=== PATIENT | male | born 1990 | race American Indian/Alaskan Native ===

== ENCOUNTER 2020-03-14 23:48 | Emergency (ER) | payer OTHER ==
[2020-03-15 01:27] LABS: Basophils % (Auto) 0.3 % (0.0-1.8); Eosinophils # (Auto) 0.3 K/mm3 (0.0-0.4); Eosinophils % (Auto) 2.6 % (0.0-4.3); Hematocrit 45.7 % (35.5-45.6); Hemoglobin 14.9 gm/dl (11.8-15.2); Lymphocytes # (Auto) 2.2 K/mm3 (1.2-5.4); Lymphocytes % (Auto) 18.9 % (13.4-35.0); Mean Corpuscular HGB Conc 33 % (32-34); Mean Corpuscular Volume 86 fl (84-94); Monocytes # (Auto) 0.8 K/mm3 (0.0-0.8); Platelet Count 172 K/mm3 (140-440); Red Blood Count 5.29 M/mm3 (3.65-5.03)
[2020-03-15 01:48] LABS: Blood Urea Nitrogen 17 mg/dL (9-20); Calcium 9.8 mg/dL (8.4-10.2); Hemolysis Index 18
[2020-03-15 01:58] LABS: BUN/Creatinine Ratio 24
[2020-03-15 02:11] LABS: Amphetamine Screen,Urine PRESUMPTIVE NEGATIVE; Benzodiazepines Screen,Urine PRESUMPTIVE NEGATIVE; Cannabinoid Screen,Urine PRESUMPTIVE POSITIVE; Cocaine Screen,Urine PRESUMPTIVE NEGATIVE; Methadone Screen,Urine PRESUMPTIVE NEGATIVE; Opiate Screen,Urine PRESUMPTIVE NEGATIVE
[2020-03-15 02:14] LABS: Bilirubin,Urine NEG (Negative); Blood,Urine NEG (Negative); Color,Urine Yellow (Yellow); Mucus,Urine FEW /HPF; Protein,Urine <15 mg/dL mg/dL (Negative); WBC,Urine < 1.0 /HPF (0.0-6.0)
== END 2020-03-15 00:31 | disposition left against medical advice (07) ==
LOC: ED 23:48
DX: F20.9 Schizophrenia, unspecified (principal); Z53.21 Procedure and treatment not carried out due to patient leaving prior to being seen by health care provider
CPT/HCPCS: 36415; 80048; 80307; 80320; 81001; 85025; G0480

== ENCOUNTER 2020-03-16 23:16 | Emergency (ER) | payer OTHER, MEDICARE | END 2020-03-16 23:25 | disposition left against medical advice (07) | LOC: ED 23:16 | DX: F20.9 Schizophrenia, unspecified (principal); Z53.21 Procedure and treatment not carried out due to patient leaving prior to being seen by health care provider ==

== ENCOUNTER 2020-07-29 23:48 | Emergency (ER) | payer OTHER, MEDICARE ==
[2020-07-30 04:30] VITALS: BP 129/80
== END 2020-07-30 05:17 | disposition left against medical advice (07) ==
LOC: ED 23:48
DX: J45.909 Unspecified asthma, uncomplicated (principal); Z53.21 Procedure and treatment not carried out due to patient leaving prior to being seen by health care provider

== ENCOUNTER 2021-01-03 16:09 | Inpatient (IN) | payer MEDICARE, OTHER ==
--- NOTE | 2021-01-03 17:31 | Emergency Department Report ---
ED Shortness of Breath HPI - General Chief Complaint: Upper Respiratory Infection Stated Complaint: FEVER Time Seen by Provider: 01/03/21 17:18 Source: patient Mode of arrival: Stretcher Limitations: No Limitations - History of Present Illness Initial Comments: 30-year-old male, history of schizophrenia, asthma, presents to ED with shortness of breath. Patient is currently an inpatient at [facility]. He reports cough, fever, shortness of breath x5 days. Patient states he has NOT received the COVID-19 vaccine. MD Complaint: shortness of breath -: days(s) (5) Severity: moderate Consistency: constant Improves With: rest Worsens With: exertion Known History Of: asthma Associated Symptoms: fever, cough Treatments Prior to Arrival: none - Related Data Home Oxygen Therapy: No Previous Rx's Medication Instructions Recorded Last Taken Type Albuterol Sulfate [Proventil Hfa] 2 puff IH Q4HR PRN #1 hfa.aer.ad 01/03/21 Unknown Rx predniSONE [Deltasone] 50 mg PO QDAY #5 tab 01/03/21 Unknown Rx Allergies Allergy/AdvReac Type Severity Reaction Status Date / Time No Known Allergies Allergy Verified 01/03/21 23:42 ED Review of Systems ROS: Stated complaint: FEVER/LOW O2 SAT Other details as noted in HPI Comment: All other systems reviewed and negative Constitutional: fever Respiratory: cough, shortness of breath, wheezing ED Past Medical Hx - Past Medical History Previous Medical History?: Yes Hx Psychiatric Treatment: Yes (schizo) Hx Asthma: Yes - Social History Smoking Status: Current Every Day Smoker Substance Use Type: None - Medications Home Medications: Home Medications Medication Instructions Recorded Confirmed Last Taken Type Albuterol Sulfate [Proventil Hfa] 2 puff IH Q4HR PRN #1 hfa.aer.ad 01/03/21 Unknown Rx predniSONE [Deltasone] 50 mg PO QDAY #5 tab 01/03/21 Unknown Rx ED Physical Exam - General Limitations: No Limitations General appearance: alert - Head Head exam: Present: atraumatic, normocephalic - Eye Eye exam: Present: normal appearance, EOMI - ENT ENT exam: Present: mucous membranes moist - Neck Neck exam: Present: normal inspection - Respiratory Respiratory exam: Present: respiratory distress, wheezes, other (Tachypneic) - Cardiovascular Cardiovascular Exam: Present: regular rate, normal rhythm - GI/Abdominal GI/Abdominal exam: Present: soft. Absent: distended, tenderness - Extremities Exam Extremities exam: Present: normal inspection - Neurological Exam Neurological exam: Present: alert, oriented X3 - Psychiatric Psychiatric exam: Present: normal affect, normal mood - Skin Skin exam: Present: warm, dry, intact, normal color ED Course Vital Signs 01/03/21 01/03/21 01/03/21 17:02 17:16 17:30 Temperature 98.3 F Pulse Rate 93 H 86 Pulse Rate [ Bilateral Throughout] Respiratory 33 H 38 H Rate Respiratory Rate [Bilateral Throughout] Blood Pressure 124/85 Blood Pressure [Left] O2 Sat by Pulse 94 100 Oximetry 01/03/21 01/03/21 01/03/21 17:55 18:00 18:30 Temperature Pulse Rate 95 H 93 H Pulse Rate [ Bilateral Throughout] Respiratory 16 43 H 37 H Rate Respiratory Rate [Bilateral Throughout] Blood Pressure 120/85 100/51 Blood Pressure [Left] O2 Sat by Pulse 98 95 94 Oximetry 01/03/21 01/03/21 01/03/21 19:00 19:15 19:16 Temperature 99.6 F Pulse Rate 100 H 102 H Pulse Rate [ 98 H Bilateral Throughout] Respiratory 34 H 18 Rate Respiratory 20 Rate [Bilateral Throughout] Blood Pressure 133/86 Blood Pressure 121/80 [Left] O2 Sat by Pulse 96 95 Oximetry 01/03/21 01/03/21 01/03/21 19:30 20:00 20:30 Temperature Pulse Rate 114 H 141 H 136 H Pulse Rate [ Bilateral Throughout] Respiratory 22 36 H 32 H Rate Respiratory Rate [Bilateral Throughout] Blood Pressure 121/80 113/60 113/60 Blood Pressure [Left] O2 Sat by Pulse 94 91 95 Oximetry 01/03/21 01/03/21 01/03/21 21:00 21:30 22:19 Temperature Pulse Rate 125 H 116 H Pulse Rate [ Bilateral Throughout] Respiratory 34 H 34 H Rate Respiratory Rate [Bilateral Throughout] Blood Pressure 112/50 102/40 Blood Pressure [Left] O2 Sat by Pulse 91 92 93 Oximetry 01/03/21 01/03/21 01/03/21 22:29 22:30 23:00 Temperature Pulse Rate Pulse Rate [ Bilateral Throughout] Respiratory 28 H Rate Respiratory Rate [Bilateral Throughout] Blood Pressure 103/37 112/45 Blood Pressure [Left] O2 Sat by Pulse 89 95 98 Oximetry 01/03/21 01/04/21 23:30 00:00 Temperature Pulse Rate Pulse Rate [ Bilateral Throughout] Respiratory Rate Respiratory Rate [Bilateral Throughout] Blood Pressure 112/45 Blood Pressure [Left] O2 Sat by Pulse 95 94 Oximetry - Reevaluation(s) Reevaluation #1: 01/03/21 20:08 Wheezing improved following neb treatment. Patient remains tachypneic. Will obtain CTA chest. ED Medical Decision Making - Lab Data Result diagrams: 01/03/21 20:21 01/03/21 20:21 - Radiology Data Radiology results: report reviewed, image reviewed - Medical Decision Making 30-year-old male presents to ED with 5 days of history of viral symptoms, including fever, cough, shortness of breath. Patient with history of asthma. Upon arrival patient tachypneic, wheezing. Initial chest x-ray negative for pneumonia. Patient was given Solu-Medrol, magnesium, albuterol nebs. Following nebulizer treatment, patient remains tachypneic, although wheezing have res olved. CTA chest was done, which was negative for PE, but does show bilateral pneumonia, suspicious for COVID-19. Throughout ED stay O2 sat dropped to 91%. I had nurse ambulate patient again and O2 sats dropped down to 89% on room air. Patient remains somewhat tachypneic. He has been placed on 2 L O2. Blood cultures drawn, Rocephin and azithromycin given. Patient will be admitted to hospitalist for further evaluation. - Differential Diagnosis COVID-19, pneumonia, asthma exacerbation, flu Critical Care Time: Yes Critical care time in (mins) excluding proc time.: 35 Critical care attestation.: If time is entered above; I have spent that time in minutes in the direct care of this critically ill patient, excluding procedure time. Critical Care Time: 35 min ED Disposition Clinical Impression: Acute asthma exacerbation, Suspected COVID-19 virus infection, Pneumonia, Acute respiratory failure with hypoxia Disposition: ADMITTED INPATIENT Is pt being admited?: Yes Condition: Stable Time of Disposition: 22:28
[2021-01-03] MEDS ORDERED: ALBUTEROL 2.5 MG/3 ML NEBU IH ONE (17:36)
[2021-01-03] MEDS ORDERED: IPRATROPIUM 0.02% NEBU 2.5 ML IH ONE (17:36)
[2021-01-03] MEDS ORDERED: methylPREDNISolone Sod Succinate 125 MG/2 ML INJ IV ONE (17:36)
[2021-01-03] MEDS ORDERED: MAGNESIUM SULFATE 2 GM/50 ML BAG IV ONE (17:36)
--- NOTE | 2021-01-03 17:54 | XRay Report ---
CHEST 1 VIEW 01/03/2021 5:22 PM INDICATION / CLINICAL INFORMATION: cough, sob. COMPARISON: Chest x-ray 02/03/2020 FINDINGS: SUPPORT DEVICES: None. HEART / MEDIASTINUM: No significant abnormality. LUNGS / PLEURA: No significant pulmonary or pleural abnormality. No pneumothorax. ADDITIONAL FINDINGS: Mild thoracic scoliosis IMPRESSION: 1. No acute findings. Signer Name: Festus Hoover MD Signed: 01/03/2021 5:50 PM Workstation Name: [id number]
[2021-01-03 20:47] LABS: Basophils % (Auto) 0.2 % (0.0-1.8); Eosinophils # (Auto) 0.1 K/mm3 (0.0-0.4); Eosinophils % (Auto) 0.6 % (0.0-4.3); Hematocrit 43.5 % (35.5-45.6); Hemoglobin 14.3 gm/dl (11.8-15.2); Lymphocytes # (Auto) 1.1 K/mm3 (1.2-5.4); Lymphocytes % (Auto) 8.1 % (13.4-35.0); Mean Corpuscular HGB Conc 33 % (32-34); Mean Corpuscular Volume 83 fl (84-94); Monocytes # (Auto) 0.4 K/mm3 (0.0-0.8); Monocytes % (Auto) 3.1 % (0.0-7.3); Platelet Count 106 K/mm3 (140-440); Red Blood Count 5.21 M/mm3 (3.65-5.03); Red Cell Distribution Width 15.4 % (13.2-15.2)
[2021-01-03 21:06] LABS: BUN/Creatinine Ratio 14; Blood Urea Nitrogen 15 mg/dL (9-20); Calcium 8.5 mg/dL (8.4-10.2); Hemolysis Index 5
--- NOTE | 2021-01-03 22:13 | Cat Scan Report ---
CTA CHEST WITH CONTRAST INDICATION / CLINICAL INFORMATION: S.O.B. x 5 days with cough and fever. Hx of Asthma. TECHNIQUE: Axial CT images were obtained through the chest after injection of IV contrast. 3 plane AK P and/or 3D reconstructions were produced. All CT scans at this location are performed using CT dose reduction for ALARA by means of automated exposure control. COMPARISON: None available. FINDINGS: PULMONARY ARTERIES: Evaluation for pulmonary embolus is limited due to extensive respiratory motion a rtifact. There is no central pulmonary embolus. THORACIC AORTA: No significant abnormality. HEART: No significant abnormality. ADENOPATHY: No significant adenopathy. LUNGS/PLEURA: Multifocal patchy groundglass opacities and airspace consolidation are present througho ut the lungs, most pronounced within the right middle lobe and lingula. No pleural effusion. No pneum othorax. ADDITIONAL FINDINGS: None. UPPER ABDOMEN: No acute findings. SKELETAL STRUCTURES: No significant osseous abnormality. IMPRESSION: 1. Multifocal patchy airspace consolidation throughout the lungs, compatible with pneumonia. 2. Evaluation for pulmonary embolus is limited due to respiratory motion artifact. There is no centra l pulmonary embolus. Signer Name: Brent Sidhu MD Signed: 01/03/2021 10:08 PM Workstation Name: [id number]
[2021-01-03] MEDS ORDERED: AZITHROMYCIN 250 MG TAB PO ONE (22:18)
[2021-01-03] MEDS ORDERED: cefTRIAXone/NS 1 GM/50 ML 1 GM/50 ML BAG IV ONE (22:18)
[2021-01-03] MEDS ORDERED: SODIUM CHLORIDE 0.9% 1000 ML 1,000 ML IV ONE (22:31)
[2021-01-03] MEDS ORDERED: MORPHINE 4 MG/1 ML INJ IV PRN (23:28)
[2021-01-03] MEDS ORDERED: ACETAMINOPHEN 325 MG TAB PO PRN (23:28)
[2021-01-03] MEDS ORDERED: MAGNESIUM HYDROXIDE (MOM) ORAL LIQD UDC PO PRN (23:28)
[2021-01-03] MEDS ORDERED: ONDANSETRON 4 MG/2 ML INJ IV PRN (23:28)
[2021-01-03] MEDS ORDERED: MORPHINE 2 MG/1 ML INJ IV PRN (23:28)
[2021-01-03] MEDS ORDERED: ALBUTEROL 2.5 MG/3 ML NEBU IH PRN (23:44)
--- NOTE | 2021-01-03 23:44 | History and Physical Report ---
History of Present Illness Date of examination: 01/03/21 Date of admission: 01/03/21 22:28 Chief complaint: Fever Shortness of Breath History of present illness: 30-year-old male with known history of asthma, schizophrenia presenting to the emergency room today from [facility] complaining of fever, cough and shortness of breath which has been ongoing for about 5 days. He denies any chest pain, no headache or dizziness and no diaphoresis. Patient admits that he has not had the COVID-19 vaccination. While in the emergency room, he became slightly hypoxic. Work-up in the emergency room today reveals leukocytosis of 13.4. CT angiogram of the chest reveals: 1. Multifocal patchy airspace consolidation throughout the lungs, compatible with pneumonia. 2. Evaluation for pulmonary embolus is limited due to respiratory motion artifact. There is no central pulmonary embolus. Patient has been admitted with pneumonia and will also be evaluated for COVID- 19. Past History Past Medical History: other (Schizophrenia,Asthma) Past Surgical History: denies: No surgical history Social history: denies: no significant social history Family history: denies: no significant family history Medications and Allergies Allergies Allergy/AdvReac Type Severity Reaction Status Date / Time No Known Allergies Allergy Verified 01/03/21 23:42 Home Medications Medication Instructions Recorded Confirmed Last Taken Type Albuterol Sulfate [Proventil Hfa] 2 puff IH Q4HR PRN #1 hfa.aer.ad 01/03/21 Unknown Rx predniSONE [Deltasone] 50 mg PO QDAY #5 tab 01/03/21 Unknown Rx Review of Systems Constitutional: fever, chills Ears, nose, mouth and throat: no nasal congestion, no sore throat Cardiovascular: no chest pain, no palpitations Respiratory: cough, shortness of breath Gastrointestinal: no abdominal pain, no nausea, no vomiting, no diarrhea Genitourinary Male: no dysuria, no hematuria, no flank pain, no nocturia Musculoskeletal: no neck pain, no low back pain Integumentary: no rash, no pruritis Neurological: no headaches, no confusion Psychiatric: no anxiety, no depression Endocrine: no polyphagia, no polydipsia, no polyuria, no nocturia Exam - Constitutional Vitals: Temp Pulse Resp BP Pulse Ox 99.6 F 116 H 28 H 112/45 98 01/03/21 19:16 01/03/21 21:30 01/03/21 22:29 01/03/21 23:00 01/03/21 23:00 General appearance: Present: no acute distress, well-nourished - EENT Eyes: Present: PERRL, EOM intact. Absent: scleral icterus ENT: hearing intact, clear oral mucosa, dentition normal - Respiratory Respiratory effort: normal Respiratory: bilateral: diminished - Cardiovascular Rhythm: regular Heart Sounds: Present: S1 & S2. Absent: gallop, systolic murmur, diastolic murmur, rub, click - Extremities Extremities: no ischemia, pulses intact, pulses symmetrical, No edema, normal temperature, normal color, Full ROM Peripheral Pulses: within normal limits - Abdominal General gastrointestinal: Present: soft, non-tender, non-distended, normal bowel sounds. Absent: mass - Integumentary Integumentary: Present: clear, warm, dry. Absent: rash - Musculoskeletal Musculoskeletal: strength equal bilaterally - Psychiatric Psychiatric: appropriate mood/affect, intact judgment & insight, memory intact, cooperative - Neurologic Neurologic: CNII-XII intact, no focal deficits, moves all extremities Results - Labs CBC & Chem 7: 01/03/21 20:21 01/03/21 20:21 Labs: Abnormal lab results 01/03/21 01/03/21 01/03/21 Range/Units 20:21 20:21 20:21 WBC 13.4 H (4.5-11.0) K/mm3 RBC 5.21 H (3.65-5.03) M/mm3 MCV 83 L (84-94) fl MCH 27 L (28-32) pg RDW 15.4 H (13.2-15.2) % Plt Count 106 L (140-440) K/mm3 Lymph % (Auto) 8.1 L (13.4-35.0) % Lymph # (Auto) 1.1 L (1.2-5.4) K/mm3 Seg Neutrophils % 88.0 H (40.0-70.0) % Seg Neutrophils # 11.8 H (1.8-7.7) K/mm3 Sodium 136 L (137-145) mmol/L Carbon Dioxide 21 L (22-30) mmol/L Glucose 119 H 119 H (75-100) mg/dL Lactate Dehydrogenase 189 H 199 H (91-180) units/L C-Reactive Protein 9.50 H 10.00 H (0.00-1.30) mg/dL Assessment and Plan - Patient Problems (1) Pneumonia Current Visit: Yes Status: Acute (2) Acute asthma exacerbation Current Visit: Yes Status: Acute Plan to address problem: Patient commenced on empiric IV antibiotics. He is also placed on IV steroid. (3) Acute respiratory failure with hypoxia Current Visit: Yes Status: Acute Plan to address problem: Secondary to the underlying pneumonia. We will keep O2 saturation greater or equal to 92%. (4) Suspected COVID-19 virus infection Current Visit: Yes Status: Acute Plan to address problem: We will await COVID-19 testing. Consult placed to infectious disease for evaluation. (5) DVT prophylaxis Current Visit: Yes Status: Acute Plan to address problem: Patient placed on subcutaneous Lovenox. (6) Full code status Current Visit: Yes Status: Acute Plan to address problem: Patient is full code.
[2021-01-04] MEDS: SODIUM CHLORIDE 0.9% 1000 ML 1,000 ML IV SCH ×2 (01:25→13:52)
[2021-01-04 06:19] LABS: Hematocrit 41.3 % (35.5-45.6); Hemoglobin 13.5 gm/dl (11.8-15.2); Mean Corpuscular HGB Conc 33 % (32-34); Mean Corpuscular Volume 83 fl (84-94); Platelet Count 111 K/mm3 (140-440); Red Blood Count 4.97 M/mm3 (3.65-5.03); Red Cell Distribution Width 14.9 % (13.2-15.2)
[2021-01-04 06:36] LABS: BUN/Creatinine Ratio 16; Blood Urea Nitrogen 13 mg/dL (9-20); Calcium 8.3 mg/dL (8.4-10.2); Hemolysis Index 4
[2021-01-04] MEDS: dexAMETHasone 4 MG/ML VIAL IV SCH (09:42)
--- NOTE | 2021-01-04 10:24 | Progress Note ---
Assessment and Plan Assessment and plan: Patient is a 30-year-old male with history of asthma, schizophrenia who presented to the hospital with shortness of breath and fever tachycardic. He is currently a resident of [facility] I unfortunately do not have the record as to why he is stable presumed that this is secondary to his schizophrenia condition. He states that his shortness of breath has been going on for 5 days. He admits not having Covid vaccine in the ER he was noted to be slightly hypoxic saturation dropping to 89% with ambulation. Was also noted to have a leukocytosis of 13.[address] of the chest showing no central pulmonary embolus although examination was limited due to respiratory motion but with multifocal patchy airspace consolidation throughout the lungs compatible with pneumonia Patient has been admitted with pneumonia and will also be evaluated for COVID- 19. (1) Pneumonia Current Visit: Yes Status: Acute (2) Acute asthma exacerbation Current Visit: Yes Status: Acute Plan to address problem: Patient commenced on empiric IV antibiotics. He is also placed on IV steroid. (3) Acute respiratory failure with hypoxia Current Visit: Yes Status: Acute Plan to address problem: Secondary to the underlying pneumonia. We will keep O2 saturation greater or equal to 92%. (4) Suspected COVID-19 virus infection Current Visit: Yes Status: Acute Plan to address problem: We will await COVID-19 testing. Consult placed to infectious disease for evaluation. (5) thrombocytopenia (6) DVT prophylaxis Current Visit: Yes Status: Acute Plan to address problem: Patient placed on subcutaneous Lovenox. (7) Full code status Current Visit: Yes Status: Acute Plan to address problem: Patient is full code. 01/04: Patient seen and examined, continued current management plan, Pulmonary and ID consulted from the ED, continue his inhaler while awaiting the Covid testing results. Encourage prone positioning. History Interval history: Patient seen and examined this morning he was not wearing oxygen but states he still has some shortness of breath otherwise no new complaints. Hospitalist Physical - Physical exam Narrative exam: VITAL SIGNS: Reviewed. GENERAL: The patient appears normally developed, Vital signs as documented. HEAD: No signs of head trauma. EYES: Pupils are equal. Extraocular motions intact. EARS: Hearing grossly intact. MOUTH: Oropharynx is normal. NECK: No adenopathy, no JVD. CHEST: Chest with clear breath sounds bilaterally. No wheezes, rales, or rhonchi. CARDIAC: Regular rate and rhythm. S1 and S2, without murmurs, gallops, or rubs. VASCULAR: No Edema. Peripheral pulses normal and equal in all extremities. ABDOMEN: Soft, non tender and non distended. No rebound or guarding, and no masses palpated. Bowel Sounds normal. MUSCULOSKELETAL: Good range of motion of all major joints. Extremities without clubbing, cyanosis or edema. NEUROLOGIC EXAM: Alert and oriented x 3 No focal sensory or strength deficits. Speech normal. Follows commands. PSYCHIATRIC: Mood normal. SKIN: detail exam as documented in skin assessment - Constitutional Vitals: Temp Pulse Resp BP Pulse Ox 97.8 F 89 22 126/64 96 01/04/21 03:21 01/04/21 03:21 01/04/21 03:21 01/04/21 03:21 01/04/21 03:21 General appearance: Present: no acute distress, well-nourished Results - Labs CBC & Chem 7: 01/04/21 05:47 01/04/21 05:47 Labs: Laboratory Last Values WBC 7.9 K/mm3 (4.5-11.0) 01/04/21 05:47 RBC 4.97 M/mm3 (3.65-5.03) 01/04/21 05:47 Hgb 13.5 gm/dl (11.8-15.2) 01/04/21 05:47 Hct 41.3 % (35.5-45.6) 01/04/21 05:47 MCV 83 fl (84-94) L 01/04/21 05:47 MCH 27 pg (28-32) L 01/04/21 05:47 MCHC 33 % (32-34) 01/04/21 05:47 RDW 14.9 % (13.2-15.2) 01/04/21 05:47 Plt Count 111 K/mm3 (140-440) L 01/04/21 05:47 Lymph % (Auto) 8.1 % (13.4-35.0) L 01/03/21 20:21 [place] % (Auto) 3.1 % (0.0-7.3) 01/03/21 20:21 Eos % (Auto) 0.6 % (0.0-4.3) 01/03/21 20:21 Baso % (Auto) 0.2 % (0.0-1.8) 01/03/21 20:21 Lymph # (Auto) 1.1 K/mm3 (1.2-5.4) L 01/03/21 20:21 [place] # (Auto) 0.4 K/mm3 (0.0-0.8) 01/03/21 20:21 Eos # (Auto) 0.1 K/mm3 (0.0-0.4) 01/03/21 20:21 Baso # (Auto) 0.0 K/mm3 (0.0-0.1) 01/03/21 20:21 Seg Neutrophils % 88.0 % (40.0-70.0) H 01/03/21 20:21 Seg Neutrophils # 11.8 K/mm3 (1.8-7.7) H 01/03/21 20:21 PT 13.8 Sec. (12.2-14.9) 01/04/21 05:46 INR 1.00 (0.87-1.13) 01/04/21 05:46 D-Dimer < 135.00 ng/mlDDU (0-234) 01/03/21 20:21 Sodium 138 mmol/L (137-145) 01/04/21 05:47 Potassium 4.7 mmol/L (3.6-5.0) D 01/04/21 05:47 Chloride 105.6 mmol/L (98-107) 01/04/21 05:47 Carbon Dioxide 25 mmol/L (22-30) 01/04/21 05:47 Anion Gap 12 mmol/L 01/04/21 05:47 BUN 13 mg/dL (9-20) 01/04/21 05:47 Creatinine 0.8 mg/dL (0.8-1.3) 01/04/21 05:47 Estimated GFR > 60 ml/min 01/04/21 05:47 BUN/Creatinine Ratio 16 % 01/04/21 05:47 Glucose 136 mg/dL (75-100) H 01/04/21 05:47 Calcium 8.3 mg/dL (8.4-10.2) L 01/04/21 05:47 Ferritin 160.4 ng/mL (30.0-300.0) 01/03/21 20:21 Lactate Dehydrogenase 189 units/L (91-180) H 01/03/21 20:21 Lactate Dehydrogenase 199 units/L (91-180) H 01/03/21 20:21 C-Reactive Protein 9.50 mg/dL (0.00-1.30) H 01/03/21 20:21 C-Reactive Protein 10.00 mg/dL (0.00-1.30) H 01/03/21 20:21 Microbiology: Microbiology 01/03/21 23:18 Peripheral/Venous Blood Culture - Preliminary Culture in Progress 01/03/21 22:35 Peripheral/Venous Blood Culture - Preliminary Culture in Progress Smith/IV: Voiding Method Toilet Active Medications - Current Medications Current Medications: Generic Name Dose Route Start Last Admin Trade Name Freq PRN Reason Stop Dose Admin Acetaminophen 650 mg 01/03/21 23:28 Acetaminophen 325 Mg Tab PO Q4H PRN Pain MILD(1-3)/Fever >100.5/LUEVANO Albuterol 2.5 mg 01/03/21 23:44 Albuterol 2.5 Mg/3 Ml Nebu IH Q4HRT PRN Shortness Of Breath Dexamethasone 6 mg 01/04/21 10:00 01/04/21 09:42 Dexamethasone 4 Mg/Ml Vial IV 01/13/21 10:01 6 mg Q24HR BENITO Administration Enoxaparin Sodium 40 mg 01/04/21 22:00 Enoxaparin 40 Mg/0.4 Ml Inj SUB-Q QDAY@2200 BENITO Protocol Sodium Chloride 1,000 mls @ 75 mls/hr 01/03/21 23:30 01/04/21 01:25 Nacl 0.9% 1000 Ml IV 75 mls/hr DIRECT BENITO Administration Ceftriaxone Sodium 2 gm in 100 mls @ 200 mls/hr 01/04/21 22:00 Rocephin/Ns 2 Gm/100 Ml IV 01/07/21 22:29 Q24H BENITO Protocol Azithromycin 500 mg in 250 mls @ 250 mls/hr 01/04/21 22:00 Zithromax/Ns IV 01/07/21 22:59 Q24H BENITO Protocol Magnesium Hydroxide 30 ml 01/03/21 23:28 Magnesium Hydroxide (Mom) Oral Liqd Udc PO Q4H PRN Constipation Morphine Sulfate 2 mg 01/03/21 23:28 Morphine 2 Mg/1 Ml Inj IV Q4H PRN Pain, Moderate (4-6) Morphine Sulfate 4 mg 01/03/21 23:28 Morphine 4 Mg/1 Ml Inj IV Q4H PRN Pain , Severe (7-10) Ondansetron HCl 4 mg 01/03/21 23:28 Ondansetron 4 Mg/2 Ml Inj IV Q8H PRN Nausea And Vomiting Sodium Chloride 10 ml 01/04/21 10:00 Sodium Chloride 0.9% 10 Ml Flush Syringe IV BID BENITO Sodium Chloride 10 ml 01/03/21 23:28 Sodium Chloride 0.9% 10 Ml Flush Syringe IV PRN PRN LINE FLUSH
[2021-01-04 10:30] LABS: Total Cells Counted 100
[2021-01-04 10:31] LABS: Band Neutrophils # (Manual) 2.8 K/mm3
[2021-01-04 10:32] LABS: Platelet Estimate Consistent w Auto
--- NOTE | 2021-01-04 10:35 | Consultation ---
History of Present Illness - Reason for Consult Consult date: 01/04/21 Reason for consult: schizophrenia - History of Present Psychiatric Illness Von Corona is a 30y/o male patient admitted for what he says is "asthma and pneumonia." The patient says he came from [facility] where he was admitted for 2 weeks for hearing voices. He says he has a history of schizophrenia. The patient currently denies hallucinations. He says the doctors at [facility] got him situated on his medications. The patient could not remember what meds he was on. The patient also denies SI/HI. He says he is homeless. The patient says he missed paying his rent for 2 months and his grandmother kicked him out. He then says "my momma has my debit card and my food stamps card." The patient denies any illicit drug use, alcohol or nicotine. PAST PSYCHIATRIC HISTORY: Diagnoses: Schizophrenia Suicide attempts or Self-harm behavior: yes Prior psychiatric hospitalizations: Yes Substance Abuse history: Denies Previous psychiatric medications tried: Yes, could not recall Outpatient treatment: yes PAST MEDICAL HISTORY: None reported or document Family Psychiatric History: None reported or documented SOCIAL HISTORY Marital Status: Single Living Arrangements: homeless Employment Status: Unemployed Access to guns/weapons: denies Education: History of Abuse: denies Legal History: denies REVIEW OF SYSTEMS Constitutional: Negative for weight loss ENT: Negative for stridor Respiratory: Negative for cough or hemoptysis All other systems reviewed and are negative MENTAL STATUS EXAMINATION General Appearance and Behavior: Age appropriate, good hygiene, wearing appropriate clothes, calm and cooperative polite with questioning. Cooperation: engaged Psychomotor Behavior: Psychomotor normal Mood: better Affect and affective range: congruent with stated mood Thought Process: goal directed Thought Content: None Speech: Normal volume, Regular rate and rhythm, Suicidal Ideation: Denies Homicidal Ideation: Denies Hallucinations: Denies Delusions: None elicited Impulse Control: unimpaired Insight and Judgment: Limited Memory: Limited Attention: attentive Orientation: a/o Assessment and Plan (1)Hx Schizophrenia Treatment Plan Continue home meds upon discharge Olanzapine 5mg po daily Sitter: per primary Medical: Per primary Disposition: Do not recommend acute psychiatric inpatient treatment. The patient understands that if SI/HI or any fear of endangerment arise he is to seek immediate assistance. Will sign off. Thanks [facility] staffed with Dr. Bautista Medications and Allergies Allergies Allergy/AdvReac Type Severity Reaction Status Date / Time No Known Allergies Allergy Verified 01/03/21 23:42 Home Medications Medication Instructions Recorded Confirmed Last Taken Type Albuterol Sulfate [Proventil Hfa] 2 puff IH Q4HR PRN #1 hfa.aer.ad 01/03/21 Unknown Rx predniSONE [Deltasone] 50 mg PO QDAY #5 tab 01/03/21 Unknown Rx Active Meds: Active Medications Acetaminophen (Acetaminophen 325 Mg Tab) 650 mg PO Q4H PRN PRN Reason: Pain MILD(1-3)/Fever >100.5/LUEVANO Albuterol (Albuterol 2.5 Mg/3 Ml Nebu) 2.5 mg IH Q4HRT PRN PRN Reason: Shortness Of Breath Dexamethasone (Dexamethasone 4 Mg/Ml Vial) 6 mg IV Q24HR BENITO Stop: 01/13/21 10:01 Last Admin: 01/04/21 09:42 Dose: 6 mg Documented by: Enoxaparin Sodium (Enoxaparin 40 Mg/0.4 Ml Inj) 40 mg SUB-Q QDAY@2200 BENITO; Protocol Sodium Chloride (Nacl 0.9% 1000 Ml) 1,000 mls @ 75 mls/hr IV DIRECT BENITO Last Admin: 01/04/21 01:25 Dose: 75 mls/hr Documented by: Ceftriaxone Sodium (Rocephin/Ns 2 Gm/100 Ml) 2 gm in 100 mls @ 200 mls/hr IV Q24H BENITO; Protocol Stop: 01/07/21 22:29 Azithromycin (Zithromax/Ns) 500 mg in 250 mls @ 250 mls/hr IV Q24H BENITO; Pr otocol Stop: 01/07/21 22:59 Magnesium Hydroxide (Magnesium Hydroxide (Mom) Oral Liqd Udc) 30 ml PO Q4H PRN PRN Reason: Constipation Morphine Sulfate (Morphine 2 Mg/1 Ml Inj) 2 mg IV Q4H PRN PRN Reason: Pain, Moderate (4-6) Morphine Sulfate (Morphine 4 Mg/1 Ml Inj) 4 mg IV Q4H PRN PRN Reason: Pain , Severe (7-10) Ondansetron HCl (Ondansetron 4 Mg/2 Ml Inj) 4 mg IV Q8H PRN PRN Reason: Nausea And Vomiting Sodium Chloride (Sodium Chloride 0.9% 10 Ml Flush Syringe) 10 ml IV BID BENITO Sodium Chloride (Sodium Chloride 0.9% 10 Ml Flush Syringe) 10 ml IV PRN PRN PRN Reason: LINE FLUSH Mental Status Exam - Vital signs Last Vital Signs Temp 97.8 F 01/04/21 03:21 Pulse 89 01/04/21 03:21 Resp 22 01/04/21 03:21 BP 126/64 01/04/21 03:21 Pulse Ox 96 01/04/21 03:21 Results Result Diagrams: 01/04/21 05:47 01/04/21 05:47 Abnormal lab results 01/03/21 01/03/21 01/03/21 Range/Units 20:21 20:21 20:21 WBC 13.4 H (4.5-11.0) K/mm3 RBC 5.21 H (3.65-5.03) M/mm3 MCV 83 L (84-94) fl MCH 27 L (28-32) pg RDW 15.4 H (13.2-15.2) % Plt Count 106 L (140-440) K/mm3 Lymph % (Auto) 8.1 L (13.4-35.0) % Lymph # (Auto) 1.1 L (1.2-5.4) K/mm3 Seg Neutrophils % 88.0 H (40.0-70.0) % Lymphocytes % (Manual) (13.4-35.0) % Seg Neutrophils # 11.8 H (1.8-7.7) K/mm3 Lymphocytes # (Manual) (1.2-5.4) K/mm3 Sodium 136 L (137-145) mmol/L Carbon Dioxide 21 L (22-30) mmol/L Glucose 119 H 119 H (75-100) mg/dL Calcium (8.4-10.2) mg/dL Lactate Dehydrogenase 189 H 199 H (91-180) units/L C-Reactive Protein 9.50 H 10.00 H (0.00-1.30) mg/dL 01/04/21 01/04/21 Range/Units 05:47 05:47 WBC (4.5-11.0) K/mm3 RBC (3.65-5.03) M/mm3 MCV 83 L (84-94) fl MCH 27 L (28-32) pg RDW (13.2-15.2) % Plt Count 111 L (140-440) K/mm3 Lymph % (Auto) (13.4-35.0) % Lymph # (Auto) (1.2-5.4) K/mm3 Seg Neutrophils % (40.0-70.0) % Lymphocytes % (Manual) 5.0 L (13.4-35.0) % Seg Neutrophils # (1.8-7.7) K/mm3 Lymphocytes # (Manual) 0.4 L (1.2-5.4) K/mm3 Sodium (137-145) mmol/L Carbon Dioxide (22-30) mmol/L Glucose 136 H (75-100) mg/dL Calcium 8.3 L (8.4-10.2) mg/dL Lactate Dehydrogenase (91-180) units/L C-Reactive Protein (0.00-1.30) mg/dL All other labs normal.
--- NOTE | 2021-01-04 13:53 | Consultation ---
History of Present Illness - Reason for Consult Consult date: 01/04/21 pneumonia Requesting physician: AMELIE COLEY - History of Present Illness The patient is a 30-year-old male with asthma, schizophrenia, resident of mental health facility was admitted with cough, shortness of breath and fever going on for about 5 days. Upon evaluation in the ER, noted to be hypoxic. CTA chest was negative for pulmonary embolism, showed bilateral patchy airspace disease. CRP 10, procalcitonin 0.09, WBC 13.4 on admission, normal today. COVID-19 PCR test is pending. Currently on room air. Review of Systems: reviewed in the chart, unable to obtain, minimize risk of transmission Past History Past Medical History: other (Schizophrenia,Asthma) Past Surgical History: denies: No surgical history Social history: denies: no significant social history Family history: denies: no significant family history Medications and Allergies Allergies Allergy/AdvReac Type Severity Reaction Status Date / Time No Known Allergies Allergy Verified 01/03/21 23:42 Home Medications Medication Instructions Recorded Confirmed Last Taken Type Albuterol Sulfate [Proventil Hfa] 2 puff IH Q4HR PRN #1 hfa.aer.ad 01/03/21 Unknown Rx predniSONE [Deltasone] 50 mg PO QDAY #5 tab 01/03/21 Unknown Rx Active Meds: Active Medications Acetaminophen (Acetaminophen 325 Mg Tab) 650 mg PO Q4H PRN PRN Reason: Pain MILD(1-3)/Fever >100.5/LUEVANO Albuterol (Albuterol 2.5 Mg/3 Ml Nebu) 2.5 mg IH Q4HRT PRN PRN Reason: Shortness Of Breath Dexamethasone (Dexamethasone 4 Mg/Ml Vial) 6 mg IV Q24HR BENITO Stop: 01/13/21 10:01 Last Admin: 01/04/21 09:42 Dose: 6 mg Documented by: Enoxaparin Sodium (Enoxaparin 40 Mg/0.4 Ml Inj) 40 mg SUB-Q QDAY@2200 BENITO; Protocol Sodium Chloride (Nacl 0.9% 1000 Ml) 1,000 mls @ 75 mls/hr IV DIRECT BENITO Last Admin: 01/04/21 01:25 Dose: 75 mls/hr Documented by: Magnesium Hydroxide (Magnesium Hydroxide (Mom) Oral Liqd Udc) 30 ml PO Q4H PRN PRN Reason: Constipation Morphine Sulfate (Morphine 2 Mg/1 Ml Inj) 2 mg IV Q4H PRN PRN Reason: Pain, Moderate (4-6) Morphine Sulfate (Morphine 4 Mg/1 Ml Inj) 4 mg IV Q4H PRN PRN Reason: Pain , Severe (7-10) Olanzapine (Olanzapine 5 Mg Tab) 5 mg PO QDAY BENITO Ondansetron HCl (Ondansetron 4 Mg/2 Ml Inj) 4 mg IV Q8H PRN PRN Reason: Nausea And Vomiting Sodium Chloride (Sodium Chloride 0.9% 10 Ml Flush Syringe) 10 ml IV BID BENITO Sodium Chloride (Sodium Chloride 0.9% 10 Ml Flush Syringe) 10 ml IV PRN PRN PRN Reason: LINE FLUSH Physical Examination - Physical Exam Narrative exam: Physical Exam (reviewed in chart to minimize risk of transmission) Constitutional: deferred Head, Ears, Nose: deferred Eyes: deferred Neck: deferred Oral: deferred Cardiovascular: deferred Respiratory: deferred GI: deferred Musculoskeletal: deferred Skin: deferred Hem/Lymphatic: deferred Psych: deferred Neurological: deferred - Constitutional Vitals: Vital Signs Temp Pulse Resp BP Pulse Ox 97.8 F 89 22 126/64 96 01/04/21 03:21 01/04/21 03:21 01/04/21 03:21 01/04/21 03:21 01/04/21 03:21 Temperature -Last 24 Hours Temperature 97.8 F Temperature 97.9 F Temperature 99.6 F Temperature 98.3 F Results - Labs CBC & Chem 7: 01/04/21 05:47 01/04/21 05:47 Labs: Abnormal lab results 01/03/21 01/03/21 01/03/21 Range/Units 20:21 20:21 20:21 WBC 13.4 H (4.5-11.0) K/mm3 RBC 5.21 H (3.65-5.03) M/mm3 MCV 83 L (84-94) fl MCH 27 L (28-32) pg RDW 15.4 H (13.2-15.2) % Plt Count 106 L (140-440) K/mm3 Lymph % (Auto) 8.1 L (13.4-35.0) % Lymph # (Auto) 1.1 L (1.2-5.4) K/mm3 Seg Neutrophils % 88.0 H (40.0-70.0) % Lymphocytes % (Manual) (13.4-35.0) % Seg Neutrophils # 11.8 H (1.8-7.7) K/mm3 Lymphocytes # (Manual) (1.2-5.4) K/mm3 Sodium 136 L (137-145) mmol/L Carbon Dioxide 21 L (22-30) mmol/L Glucose 119 H 119 H (75-100) mg/dL Calcium (8.4-10.2) mg/dL Lactate Dehydrogenase 189 H 199 H (91-180) units/L C-Reactive Protein 9.50 H 10.00 H (0.00-1.30) mg/dL 01/04/21 01/04/21 Range/Units 05:47 05:47 WBC (4.5-11.0) K/mm3 RBC (3.65-5.03) M/mm3 MCV 83 L (84-94) fl MCH 27 L (28-32) pg RDW (13.2-15.2) % Plt Count 111 L (140-440) K/mm3 Lymph % (Auto) (13.4-35.0) % Lymph # (Auto) (1.2-5.4) K/mm3 Seg Neutrophils % (40.0-70.0) % Lymphocytes % (Manual) 5.0 L (13.4-35.0) % Seg Neutrophils # (1.8-7.7) K/mm3 Lymphocytes # (Manual) 0.4 L (1.2-5.4) K/mm3 Sodium (137-145) mmol/L Carbon Dioxide (22-30) mmol/L Glucose 136 H (75-100) mg/dL Calcium 8.3 L (8.4-10.2) mg/dL Lactate Dehydrogenase (91-180) units/L C-Reactive Protein (0.00-1.30) mg/dL - Imaging and Cardiology Chest x-ray: report reviewed, image reviewed CT scan - chest: report reviewed, image reviewed Assessment and Plan Cultures: SARS CoV2 PCR: pending 01/03/2021 blood culture: In process A/P: 30-year-old male with asthma, schizophrenia, resident of mental health facility was admitted with cough, shortness of breath and fever going on for about 5 days: #COVID-19 PUI #Bilateral pneumonia: CRP 10, procalcitonin 0.09, WBC 13.4 on admission, normal today #Asthma exacerbation #Schizophrenia Recs: Follow-up COVID-19 PCR If he remains off oxygen, discontinue steroids Prophylactic anticoagulation based on d-dimer per hospital protocol procalcitonin is low, abx not needed James Hayward MD, FACP [facility] ([facility] O: [phone] F: [phone]
--- NOTE | 2021-01-04 14:00 | Event Note ---
Date: 01/04/21 asked to see patient for acute hypoxemic respiratory failure on room air at time of my evaluation - empiric CAP therapy X 5 days - outpatient f/up for repeat CXR in 1-2 weeks - please re-consult as needed
[2021-01-04] MEDS ORDERED: LORazepam 2 MG/ML VIAL IV ONE (17:09)
[2021-01-04] MEDS ORDERED: AZITHROMYCIN/NS 500 MG/250 ML 500 MG/250 ML BAG IV SCH (22:00)
[2021-01-04] MEDS ORDERED: ENOXAPARIN 40 MG/0.4 ML INJ SUB-Q SCH (22:00)
[2021-01-04] MEDS ORDERED: cefTRIAXone/NS 2 GM/100 ML 2 GM/100 ML BAG IV SCH (22:00)
--- NOTE | 2021-01-05 09:16 | Discharge Summary ---
Providers - Providers Date of Admission: 01/04/21 09:36 Attending physician: DIXIE DO MD 01/03/21 23:28 Consult to Physician [CONS] Routine Comment: Consulting Provider: LOLA SAHU Physician Instructions: Reason For Exam: PNEUMONIA WITH HYPOXIA Consult to Physician [CONS] Routine Comment: Consulting Provider: RADHA BALLESTEROS Physician Instructions: Reason For Exam: PNEUMONIA, HYPOXIA 01/04/21 09:35 Consult to Physician [CONS] Routine Comment: Consulting Provider: NEREYDA RAM Physician Instructions: Reason For Exam: schizophrenia Primary care physician: RADIOLOGIC TECHNOLOGIST CHIEF Hospitalization Reason for admission: Shortness of breath Condition: Stable Hospital course: Patient is a 30-year-old male with history of asthma, schizophrenia who presented to the hospital with shortness of breath and fever tachycardic. He is currently a resident [facility] I unfortunately do not have the record as to why he is stable presumed that this is secondary to his schizophrenia condition. He states that his shortness of breath has been going on for 5 days. He admits not having Covid vaccine in the ER he was noted to be slightly hypoxic saturation dropping to 89% with ambulation. Was also noted to have a leukocytosis of 13.[address] of the chest showing no central pulmonary embolus although examination was limited due to respiratory motion but with multifocal patchy airspace consolidation throughout the lungs compatible with pneumonia Patient has been admitted with pneumonia and will also be evaluated for COVID- 19. 01/05/21: Patient seen and examined, clinically stable no new complaints, COVID 19 testing is negative. Patient is stable for discharge back to [facility]. No evidence of sepsis. Will treat with oral antibiotics. no further hypoxia noted. Will also give steroids and asthma meds, follow with pulmonary and Hematology (1) Pneumonia (2) Acute asthma exacerbation (3) Acute respiratory failure with hypoxia (4) Suspected COVID-19 virus infection- Negative (5) thrombocytopenia Disposition: [address] [place] [address] Final Discharge Diagnosis (Prints w/discharge instructions): Asthma exacerbation with hypoxia Time spent for discharge: 35 mins Core Measure Documentation - Palliative Care Palliative Care/ Comfort Measures: Not Applicable - Core Measures Any of the following diagnoses?: none Exam - Physical Exam Narrative exam: VITAL SIGNS: Reviewed. GENERAL: The patient appears normally developed, Vital signs as documented. HEAD: No signs of head trauma. EYES: Pupils are equal. Extraocular motions intact. EARS: Hearing grossly intact. MOUTH: Oropharynx is normal. NECK: No adenopathy, no JVD. CHEST: Chest with clear breath sounds bilaterally. No wheezes, rales, or rhonchi. CARDIAC: Regular rate and rhythm. S1 and S2, without murmurs, gallops, or rubs. VASCULAR: No Edema. Peripheral pulses normal and equal in all extremities. ABDOMEN: Soft, non tender and non distended. No rebound or guarding, and no masses palpated. Bowel Sounds normal. MUSCULOSKELETAL: Good range of motion of all major joints. Extremities without clubbing, cyanosis or edema. NEUROLOGIC EXAM: Alert and oriented x 3 No focal sensory or strength deficits. Speech normal. Follows commands. PSYCHIATRIC: Mood normal. SKIN: detail exam as documented in skin assessment - Constitutional Vitals: Temp Pulse Resp BP Pulse Ox 97.3 F L 68 20 132/65 96 01/05/21 04:06 01/05/21 04:06 01/05/21 04:06 01/05/21 04:06 01/05/21 08:32 Plan Activity: advance as tolerated Diet: low fat Special Instructions: record daily weights, record daily BP diary Follow up with: LOLA SAHU MD [Staff Physician] - 7 Days TERRIE BIRD DO [Staff Physician] - 7 Days PRIMARY CARE, [Primary Care Provider] - 3-5 Days NEREYDA RAM MD [Staff Physician] - 7 Days Prescriptions: Amoxicillin/Potassium Clav [Augmentin 875-125 Tablet] 1 each PO BID #10 tablet predniSONE [Deltasone] 50 mg PO QDAY #5 tab Albuterol Sulfate [Proventil Hfa] 2 puff IH Q4HR PRN #1 hfa.aer.ad PRN Reason: Wheezing OLANzapine [ZyPREXA] 5 mg PO QDAY #30 tablet
[2021-01-05] MEDS: dexAMETHasone 4 MG/ML VIAL IV SCH (09:29)
[2021-01-05 11:30] VITALS: BP 132/91
--- NOTE | 2021-01-05 11:33 | Progress Note ---
Assessment and Plan Cultures: SARS CoV2 PCR: negative 01/03/2021 blood culture: no growth A/P: 30-year-old male with asthma, schizophrenia, resident of mental health facility was admitted with cough, shortness of breath and fever going on for about 5 days: #Bilateral pneumonia: CRP 10, procalcitonin 0.09, WBC 13.4 on admission, normal on repeat #Asthma exacerbation #Schizophrenia Recs: On room air, COVID-19 PCR negative. Okay for discharge on oral antibiotics to complete total 5 days Will sign off. James Hayward MD, FACP [facility] ([facility] O: [phone] F: [phone] Subjective Date of service: 01/05/21 Interval history: No fever. On room air. No complaints. COVID-19 PCR came back negative. ambulating in room. Objective - Exam Narrative Exam: Physical Exam: Constitutional: Alert, cooperative. No acute distress Head, Ears, Nose: Normocephalic, atraumatic. External ears, nose normal Eyes: Conjunctivae/corneas clear. No icterus. No ptosis. Neck: Supple, no meningeal signs Cardiovascular: S1, S2 + Respiratory: Good air entry, clear to auscultation bilaterally GI: Soft, non-tender; bowel sounds normal. No peritoneal signs Musculoskeletal: No pedal edema, no cyanosis. Skin: No rash or abscess Hem/Lymphatic: No palpable cervical or supraclavicular nodes. No lymphangitis Psych: Mood ok. Affect normal Neurological: Awake, alert, oriented. No gross abnormality - Constitutional Vitals: Vital Signs Temp Pulse Resp BP Pulse Ox 97.9 F 85 20 132/91 97 01/05/21 11:10 01/05/21 11:10 01/05/21 04:06 01/05/21 11:10 01/05/21 11:10 Temperature -Last 24 Hours Temperature 97.9 F Temperature 97.3 F Temperature 98.2 F - Labs CBC & Chem 7: 01/04/21 05:47 01/04/21 05:47
== END 2021-01-05 16:17 | DRG 189 ==
LOC: ED 16:09 → 3A 22:28 → OBSVTOIN 01-04 09:36
PROVIDERS: ADMIT Internal Medicine Geriatric Medicine; ATTEND Internal Medicine
DX: J96.01 Acute respiratory failure with hypoxia (principal); J18.9 Pneumonia, unspecified organism; J45.901 Unspecified asthma with (acute) exacerbation; Z20.822 Contact with and (suspected) exposure to COVID-19; F20.9 Schizophrenia, unspecified; F17.200 Nicotine dependence, unspecified, uncomplicated; D69.6 Thrombocytopenia, unspecified
CPT/HCPCS: 36415; 71045; 71275; 80048; 82728; 82947; 83615; 84145; 85007; 85025; 85379; 85610; 86140; 87040; 87641; 94640; 94644; 99406; G0378; J0696; J1100; J1650; J2060; J2930; J3475; J7030; Q9967; U0003

== ENCOUNTER 2021-01-27 08:26 | Emergency (ER) | payer OTHER ==
[2021-01-27] MEDS ORDERED: LORazepam 2 MG/ML VIAL ONE (08:34)
[2021-01-27] MEDS ORDERED: ZIPRASIDONE MESYLATE 20 MG VIAL IM ONE ×2 (08:34→08:59)
--- NOTE | 2021-01-27 08:46 | Emergency Department Report ---
HPI - General Time Seen by Provider: 01/27/21 08:41 - HPI HPI: 30-year-old -Cong[place] male presents to the emergency department via EMS from [facility] for evaluation of fever and shortness of breath. The patient was seen here a little over 3 weeks ago for shortness of breath, also sent in from her hospital at that time. He is an involuntary admission at [facility] for psychiatric illness. During his last admission the patient was found to have multifocal patchy pneumonia, but was not negative for COVID-19. Supposedly the patient had a fever of 100.4 F just prior to presentation. Upon arrival the patient is uncooperative and slightly combative. He is spitting at ER staff and over the nurses station. I attempted to redirect the patient but he continues to be uncooperative and display psychosis and treatment was given so we can safely proceed with his evaluation. ED Past Medical Hx - Past Medical History Hx Psychiatric Treatment: Yes (schizo) Hx Asthma: Yes - Social History Smoking Status: Current Every Day Smoker - Medications Home Medications: Home Medications Medication Instructions Recorded Confirmed Last Taken Type Albuterol Sulfate [Proventil Hfa] 2 puff IH Q4HR PRN #1 hfa.aer.ad 01/03/21 Unknown Rx predniSONE [Deltasone] 50 mg PO QDAY #5 tab 01/03/21 Unknown Rx Amoxicillin/Potassium Clav 1 each PO BID #10 tablet 01/05/21 Unknown Rx [Augmentin 875-125 Tablet] OLANzapine [ZyPREXA] 5 mg PO QDAY #30 tablet 01/05/21 Unknown Rx ED Review of Systems ROS: Stated complaint: SOB Other details as noted in HPI Comment: Unobtainable due to pts medical conditions Constitutional: fever Respiratory: shortness of breath Physical Exam - Physical Exam Physical Exam: GENERAL: The patient is well-developed well-nourished. HENT: Normocephalic. Atraumatic. Patient has moist mucous membranes. EYES: Extraocular motions are intact. NECK: Supple. Trachea is midline. CHEST/LUNGS: Clear to auscultation. There is no respiratory distress noted. HEART/CARDIOVASCULAR: Regular. There is no tachycardia. There is no murmur. ABDOMEN: Abdomen is soft, nontender. Patient has normal bowel sounds. SKIN: Skin is warm and dry. NEURO: The patient is awake, alert, and oriented. The patient is cooperative. Normal speech. MUSCULOSKELETAL: There is no tenderness or deformity. There is no limitation range of motion. PSYCH: Patient has some tangential rambling speech and inappropriate laughter. ED Medical Decision Making - Lab Data Result diagrams: 01/27/21 08:46 01/27/21 09:53 Lab Results 01/27/21 01/27/21 01/27/21 Range/Units 08:46 08:46 08:46 WBC 10.3 (4.5-11.0) K/mm3 RBC 5.11 H (3.65-5.03) M/mm3 Hgb 13.6 (11.8-15.2) gm/dl Hct 43.1 (35.5-45.6) % MCV 84 (84-94) fl MCH 27 L (28-32) pg MCHC 32 (32-34) % RDW 14.9 (13.2-15.2) % Plt Count 126 L (140-440) K/mm3 Lymph % (Auto) 11.6 L (13.4-35.0) % Esmeralda % (Auto) 3.1 (0.0-7.3) % Eos % (Auto) 2.1 (0.0-4.3) % Baso % (Auto) 3.0 H (0.0-1.8) % Lymph # (Auto) 1.2 (1.2-5.4) K/mm3 Esmeralda # (Auto) 0.3 (0.0-0.8) K/mm3 Eos # (Auto) 0.2 (0.0-0.4) K/mm3 Baso # (Auto) 0.3 H (0.0-0.1) K/mm3 Seg Neutrophils % 80.2 H (40.0-70.0) % Seg Neutrophils # 8.3 H (1.8-7.7) K/mm3 VBG pH (7.320-7.420) Sodium 149 H (137-145) mmol/L Potassium TNR Chloride 83.9 L (98-107) mmol/L Carbon Dioxide 16 L (22-30) mmol/L Anion Gap 59 mmol/L BUN 8 L (9-20) mg/dL Creatinine 10.3 H (0.8-1.3) mg/dL Estimated GFR 7 ml/min BUN/Creatinine Ratio 1 % Glucose 93 (75-100) mg/dL Calcium 6.7 L (8.4-10.2) mg/dL Total Bilirubin 0.40 (0.1-1.2) mg/dL AST 27 (5-40) units/L ALT 9 (7-56) units/L Alkaline Phosphatase 61 (35-129) units/L Total Protein 5.8 L (6.3-8.2) g/dL Albumin 2.8 L (3.9-5) g/dL Albumin/Globulin Ratio 0.9 % TSH (0.270-4.200) mlU/mL Plasma/Serum Alcohol < 0.01 (0-0.07) % 01/27/21 01/27/21 01/27/21 Range/Units 08:46 08:46 09:53 WBC (4.5-11.0) K/mm3 RBC (3.65-5.03) M/mm3 Hgb (11.8-15.2) gm/dl Hct (35.5-45.6) % MCV (84-94) fl MCH (28-32) pg MCHC (32-34) % RDW (13.2-15.2) % Plt Count (140-440) K/mm3 Lymph % (Auto) (13.4-35.0) % Esmeralda % (Auto) (0.0-7.3) % Eos % (Auto) (0.0-4.3) % Baso % (Auto) (0.0-1.8) % Lymph # (Auto) (1.2-5.4) K/mm3 Esmeralda # (Auto) (0.0-0.8) K/mm3 Eos # (Auto) (0.0-0.4) K/mm3 Baso # (Auto) (0.0-0.1) K/mm3 Seg Neutrophils % (40.0-70.0) % Seg Neutrophils # (1.8-7.7) K/mm3 VBG pH 7.300 L (7.320-7.420) Sodium 144 (137-145) mmol/L Potassium 3.7 Chloride 97.9 L (98-107) mmol/L Carbon Dioxide 17 L (22-30) mmol/L Anion Gap 33 mmol/L BUN 8 L (9-20) mg/dL Creatinine 0.7 L D (0.8-1.3) mg/dL Estimated GFR > 60 ml/min BUN/Creatinine Ratio 11 % Glucose 99 (75-100) mg/dL Calcium 7.9 L D (8.4-10.2) mg/dL Total Bilirubin 0.40 (0.1-1.2) mg/dL AST 20 (5-40) units/L ALT 11 (7-56) units/L Alkaline Phosphatase 87 (35-129) units/L Total Protein 6.3 (6.3-8.2) g/dL Albumin 4.0 (3.9-5) g/dL Albumin/Globulin Ratio 1.7 % TSH 0.312 (0.270-4.200) mlU/mL Plasma/Serum Alcohol (0-0.07) % - Radiology Data Radiology results: image reviewed interpreted by me: Chest x-ray does not show any acute process. There are no pleural effusions, obvious pneumonia and there is no pneumothorax. No widened mediastinum. - Medical Decision Making This patient was sent in from [facility] for evaluation after he was found to have a low-grade fever. The also concern that the patient previously was diagnosed with pneumonia. Initially the patient required Geodon and Ativan as he was combative and inappropriate. This helped the patient calm down and we were able to proceed with evaluation. Heart and lung sounds are normal to auscultation and the patient does not have any respiratory or acute distress. A chest x-ray was done that did not show any pneumonia, pleural effusions, or any other acute process. Labs have been mostly unremarkable including CBC, metabolic panel, blood alcohol level and normal thyroid function. His vital signs have been reassuring throughout his ED course including being afebrile. For all these reasons he appears safe for discharge back to [facility] to continue his psychiatric treatment. Critical Care Time: No Critical care attestation.: If time is entered above; I have spent that time in minutes in the direct care of this critically ill patient, excluding procedure time. ED Disposition Clinical Impression: Medical clearance for psychiatric admission Schizophrenia Qualifiers: Schizophrenia type: unspecified Qualified Code(s): F20.9 - Schizophrenia, unspecified Disposition: 01 HOME / SELF CARE / HOMELESS Is pt being admited?: No Condition: Stable Instructions: Schizophrenia, Medical Screening Exam Additional Instructions: Chest x-ray done today shows resolution of your previous pneumonia. Vital signs have been reassuring throughout your ED course including being afebrile. Please follow-up with the facility physician. Please follow-up with your primary care physician once you are done at [facility]. Return to the emergency department with any worsening of your symptoms, new or concerning symptoms not addressed during this current emergency department visit, or with any acute distress. Referrals: PRIMARY CARE, [Primary Care Provider] - 3-5 Days Time of Disposition: 11:18
[2021-01-27] MEDS ORDERED: LORazepam 2 MG/ML VIAL IM ONE (08:59)
--- NOTE | 2021-01-27 09:18 | XRay Report ---
CHEST 1 VIEW, 01/27/2021 8:37 AM CLINICAL INFORMATION/INDICATION: Shortness of breath COMPARISON: Chest radiograph, 01/03/2021 FINDINGS: SUPPORT DEVICES: None. HEART: The cardiac silhouette is normal in size. LUNGS/PLEURA: The lungs are clear of focal airspace disease or significant pleural effusion. ADDITIONAL FINDINGS: No additional acute findings. IMPRESSION: 1. No evidence of acute cardiopulmonary process. Signer Name: Jordyn Arizmendi MD Signed: 01/27/2021 9:13 AM Workstation Name: [id number]
[2021-01-27 09:26] LABS: Basophils # (Auto) 0.3 K/mm3 (0.0-0.1); Eosinophils # (Auto) 0.2 K/mm3 (0.0-0.4); Eosinophils % (Auto) 2.1 % (0.0-4.3); Hematocrit 43.1 % (35.5-45.6); Hemoglobin 13.6 gm/dl (11.8-15.2); Lymphocytes # (Auto) 1.2 K/mm3 (1.2-5.4); Lymphocytes % (Auto) 11.6 % (13.4-35.0); Mean Corpuscular HGB Conc 32 % (32-34); Mean Corpuscular Volume 84 fl (84-94); Monocytes # (Auto) 0.3 K/mm3 (0.0-0.8); Monocytes % (Auto) 3.1 % (0.0-7.3); Platelet Count 126 K/mm3 (140-440); Red Blood Count 5.11 M/mm3 (3.65-5.03); Red Cell Distribution Width 14.9 % (13.2-15.2)
[2021-01-27 09:42] LABS: Alanine Aminotransferase 9 units/L (7-56); Albumin 2.8 g/dL (3.9-5); Blood Urea Nitrogen 8 mg/dL (9-20); Calcium 6.7 mg/dL (8.4-10.2); Hemolysis Index 395
[2021-01-27 09:47] LABS: BUN/Creatinine Ratio 1
[2021-01-27 10:11] VITALS: BP 136/74
[2021-01-27 10:20] LABS: Alanine Aminotransferase 11 units/L (7-56); Blood Urea Nitrogen 8 mg/dL (9-20); Calcium 7.9 mg/dL (8.4-10.2); Hemolysis Index 28
[2021-01-27 10:26] LABS: BUN/Creatinine Ratio 11
== END 2021-01-27 12:24 | disposition home or self-care (01) ==
LOC: ED 08:26
DX: F20.9 Schizophrenia, unspecified (principal); Z13.30 Encounter for screening examination for mental health and behavioral disorders, unspecified; F17.200 Nicotine dependence, unspecified, uncomplicated; J45.909 Unspecified asthma, uncomplicated
CPT/HCPCS: 36415; 71045; 80053; 82805; 84443; 85025; 96372; 99284; J2060; J3486; 80320; G0480